=== PATIENT | female | born 1990 | race Caucasian/White ===

== ENCOUNTER 2021-10-10 09:54 | Outpatient (CLI) | payer OTHER | END 2021-10-10 09:55 | disposition home or self-care (01) | LOC: CSHULT 09:54 | PROVIDERS: ATTEND Advanced Practice Midwife | DX: R10.11 Right upper quadrant pain (principal) | CPT/HCPCS: 76705 ==

== ENCOUNTER 2022-02-18 12:49 | Outpatient (CLI) | payer OTHER ==
[2022-02-18] MEDS ORDERED: Iopamidol 300 61% 100 ML VIAL FS ONE (13:48)
== END 2022-02-18 12:50 | disposition home or self-care (01) ==
LOC: CSHCT 12:49
PROVIDERS: ATTEND Otolaryngology Otolaryngic Allergy
DX: D18.09 Hemangioma of other sites (principal); H93.8X2 Other specified disorders of left ear
CPT/HCPCS: 70481